=== PATIENT | male | born 1990 | race Caucasian/White ===

== ENCOUNTER 2021-02-09 16:39 | Emergency (ER) | payer BC ==
[~2021-02-09] VITALS: Ht 188 cm; Wt 103.0 kg
--- NOTE | 2021-02-09 17:08 | NUR ---
BIB SELF C/O A GENERALIZED RASH/ALLERGIC REACTION SINCE LAST NIGHT AFTER EATING RAMEN. DENIES SOB. AAOX4, SPEAKING NORMALLY, BREATHING EVEN AND UNLABORED. ASSISTED TO ER BED 1, SITTING IN BED. VS STABLE
[2021-02-09] MEDS ORDERED: PRED50TA PO (17:09)
[2021-02-09] MEDS ORDERED: predniSONE 20 MG TABLET ONE (17:23)
[2021-02-09] MEDS ORDERED: diphenhydrAMINE HCL 50 MG CAPSULE ONE (17:23)
[2021-02-09] MEDS ORDERED: FAMOTIDINE (20 MG) 20 MG TABLET ONE (17:24)
[2021-02-09] MEDS ORDERED: diphenhydrAMINE HCL 50 MG CAPSULE PO ONE (17:30)
[2021-02-09] MEDS ORDERED: FAMOTIDINE (20 MG) 20 MG TABLET PO ONE (17:30)
[2021-02-09] MEDS ORDERED: predniSONE 10 MG TABLET PO ONE (17:30)
--- NOTE | 2021-02-09 17:40 | NUR ---
Patient discharged to home in stable condition. Written and verbal after care instructions given. Patient verbalizes understanding of instruction.
[2021-02-09 17:41] VITALS: BP 128/79
== END 2021-02-09 17:41 | disposition home or self-care (01) ==
LOC: ER 16:44
DX: T78.40XA Allergy, unspecified, initial encounter (principal); L50.9 Urticaria, unspecified; X58.XXXA Exposure to other specified factors, initial encounter
CPT/HCPCS: 99284; J7512 ×2; Q0163